=== PATIENT | male | born 1945 | race Caucasian/White ===

== ENCOUNTER 2016-11-20 16:38 | Inpatient (IN) | payer OTHER ==
[~2016-11-20] VITALS: Ht 182.9 cm; Wt 100.0 kg
[~2016-11-20 16:38] MED LIST: ADVAIR HFA120 INHALA IH; ALEVE220 M2 PO; ALEVE220 MG PO; ASPIR 8181 M1 PO; Aspirin E.C. PO; BUPROPION HCL150 M2 PO; CELEXA40 MG PO; CIALIS20 MG PO; CITALOPRAM HBR40 MG PO; CLEOCIN150 MG PO; COUMADIN,JANTO7.5 MG PO; COUMADIN1 MG PO; COUMADIN10 MG PO; COUMADIN7.5 MG PO; CYANOCOBALAM1000 MCG PO; DESYREL100 MG PO; DILAUDID4 MG; DILAUDID4 MG PO; DOCUSATE SODIU100 MG PO; FEROSUL325 MG PO; FERROUS SULFAT325 MG PO; FISH OIL 1,0001 EAC6 PO; FISH OIL 1,0001 EAC7 PO; FLOMAX0.4 MG PO; HYDROCODON-ACE1 EAC7 PO; HYDROMORPHONE HC4 MG PO; IRON325 M1 PO; LEVOFLOXACIN750 MG PO; LISINOPRIL10 MG PO; LO-DOSE ASPIRIN81 M2 PO; MEN'S MULTI-VI1 EACH PO; MOBIC7.5 MG PO; PANTOPRAZOLE SO40 MG PO; PERCOCET 5/31 TABLET PO; PHENTERMINE 37.5 MG; PHENTERMINE H37.5 MG PO; PHENTERMINE HCL; PREDNISONE10 MG PO; PROSCAR5 MG PO; PROTONIX40 MG PO; REQUIP1 MG PO; SPIRIVA RESPIMAT4 GM IH; TAMSULOSIN HCL0.4 MG PO; TRAMADOL HCL50 MG PO; TRAZODONE HCL50 MG PO; ULTRAM50 MG PO; VENTOLIN HFA18 GM IH; VITAMIN D31000 UNI2 PO; ZESTRIL10 MG PO; ZOLOFT50 MG PO
[2016-11-20 17:19] LABS: HEMATOCRIT 41.9 % (38.0-50.0); MCH 27.5 PG (29.0-34.0); MCHC 32.5 G/DL (30.0-36.0); MCV 84.8 FL (86-99); MEAN PLAT.VOLUME 9.8 uM^3 (9.0-12.4); PLATELET COUNT 374 K/uL (156-360); RBC DIS.WIDTH-CV 17.2 % (11.8-14.6); RBC DIS.WIDTH-SD 52.6 % (39-53); RED BLOOD COUNT 4.94 M/uL (4.00-5.50); WHITE BLOOD COUNT 10.4 K/uL (4.1-10.2)
[2016-11-20 17:28] LABS: CHLORIDE 112 mEq/L (99-109); POTASSIUM 5.1 mEq/L (3.7-5.4); SODIUM 141 mEq/L (136-147)
[2016-11-20 17:30] LABS: BASOPHIL COUNT 0.1 K/uL (0-0.1); EOSINOPHIL (%) 3.3 % (0-5); EOSINOPHIL COUNT 0.3 K/uL (0-0.3); GLUCOSE 64 mg/dL (70-99); LYMPHOCYTE COUNT 1.8 K/uL (1.0-2.8); MONOCYTE (%) 5.1 % (3-12); MONOCYTE COUNT 0.5 K/uL (0-0.8); NEUTROPHIL (%) 73.2 % (45-76); NEUTROPHIL COUNT 7.6 K/uL (1.8-6.4)
[2016-11-20 17:32] LABS: ANION GAP 11 MEQ/L (2-14); TOTAL BILIRUBIN 0.3 mg/dL (0.0-1.0)
[2016-11-20 17:34] LABS: ALKALINE PHOSPHATASE 100 IU/L (3-129); GFR ESTIMATE (CALCULATED) 42 mL/min/
[2016-11-20 17:35] LABS: UREA NITROGEN (BUN) 44 mg/dL (9-23)
[2016-11-20 17:40] LABS: TROP-I INTERPRETATION NEGATIVE; TROPONIN-I < 0.01 ng/mL (0.0-0.30)
[2016-11-20 20:10] LABS: ADD MIUA? YES; BILIRUBIN NEGATIVE; BLOOD NEGATIVE; COLOR YELLOW ((YELLOW)); GLUCOSE (STRIP) NEGATIVE; KETONES NEGATIVE; LEUKOCYTES NEGATIVE; NITRITE NEGATIVE; PH, URINE 5.5 (5-8); PROTEIN (STRIP) NEGATIVE; SPECIFIC GRAVITY 1.012 (1.000-1.030); UROBILINOGEN 0.2 MG/DL (0.2-1.0)
[2016-11-20 20:40] LABS: BACTERIA NONE SEEN /HPF; CASTS NONE SEEN /LPF; CRYSTALS NONE SEEN; EPITHELIAL CELLS RARE /HPF; MUCUS RARE /LPF; RED BLOOD CELLS 0-5 /HPF (0-5); UCUL ADDED? NO; WHITE BLOOD CELLS 0-5 /HPF (0-5)
[2016-11-20] MEDS ORDERED: DESYREL100 MG PO (21:01)
[2016-11-20] MEDS ORDERED: FLOMAX0.4 MG PO (21:02)
[2016-11-20] MEDS ORDERED: ADIPEX-P37.5 MG PO (21:02)
[2016-11-20] MEDS ORDERED: ZANTAC150 MG PO (21:02)
[2016-11-20] MEDS ORDERED: CELEXA40 MG PO (21:02)
[2016-11-20] MEDS ORDERED: CYMBALTA30 MG PO (21:02)
[2016-11-20 22:15] LABS: POINT-OF-CARE METER ID UU14100415
[2016-11-21 01:15] VITALS: BP 118/64
[2016-11-21 02:27] LABS: INTERNAL CONTROL VALID? YES
[2016-11-21 02:28] LABS: INTERNAL CONTROL VALID? YES
[2016-11-21 04:06] VITALS: BP 126/57
[2016-11-21 06:17] LABS: HEMATOCRIT 35.2 % (38.0-50.0); MCH 26.6 PG (29.0-34.0); MCV 85.9 FL (86-99); MEAN PLAT.VOLUME 9.7 uM^3 (9.0-12.4); RBC DIS.WIDTH-CV 17.3 % (11.8-14.6); RBC DIS.WIDTH-SD 54.2 % (39-53); WHITE BLOOD COUNT 8.1 K/uL (4.1-10.2)
[2016-11-21 06:33] LABS: PLATELET COUNT 240 K/uL (156-360)
[2016-11-21 06:39] LABS: EOSINOPHIL (%) 4.7 % (0-5); EOSINOPHIL COUNT 0.4 K/uL (0-0.3); IMMATURE GRANULOCYTE (%) 0.2 % (0.0-0.7); LYMPHOCYTE COUNT 1.4 K/uL (1.0-2.8); MONOCYTE (%) 4.9 % (3-12); MONOCYTE COUNT 0.4 K/uL (0-0.8); NEUTROPHIL (%) 72.5 % (45-76); NEUTROPHIL COUNT 5.9 K/uL (1.8-6.4)
[2016-11-21 06:46] LABS: ALKALINE PHOSPHATASE 66 IU/L (3-129); ANION GAP 5 MEQ/L (2-14); CHLORIDE 115 MEQ/L (99-109); POTASSIUM 5.7 MEQ/L (3.7-5.4); SAMPLE HEMOLYSIS CHECK 0; SAMPLE ICTERIC CHECK 0; SAMPLE LIPEMIA CHECK 0; SODIUM 142 MEQ/L (136-147); TOTAL BILIRUBIN 0.3 MG/DL (0.0-1.0); UREA NITROGEN (BUN) 33 mg/dL (9-23)
[2016-11-21 06:50] LABS: GFR ESTIMATE (CALCULATED) > 59 mL/min/; GLUCOSE 99 mg/dL (70-99)
[2016-11-21 07:06] VITALS: BP 125/74
[2016-11-21 11:22] VITALS: BP 117/51
[2016-11-21 13:55] LABS: ANION GAP 5 MEQ/L (2-14); CHLORIDE 112 MEQ/L (99-109); GFR ESTIMATE (CALCULATED) > 59 mL/min/; GLUCOSE 90 mg/dL (70-99); POTASSIUM 4.9 MEQ/L (3.7-5.4); SAMPLE HEMOLYSIS CHECK 0; SAMPLE ICTERIC CHECK 0; SAMPLE LIPEMIA CHECK 0; SODIUM 139 MEQ/L (136-147); UREA NITROGEN (BUN) 27 mg/dL (9-23)
[2016-11-21 15:23] VITALS: BP 126/62
[2016-11-21 19:24] VITALS: BP 109/66
[2016-11-22 00:14] VITALS: BP 110/64
[2016-11-22 03:55] VITALS: BP 120/71
[2016-11-22 08:34] VITALS: BP 140/60
[2016-11-22 11:32] VITALS: BP 89/53
[2016-11-22 16:20] VITALS: BP 125/85
[2016-11-22 20:00] VITALS: BP 113/76
[2016-11-23 00:02] VITALS: BP 101/71
[2016-11-23 03:42] VITALS: BP 115/74
[2016-11-23 07:38] VITALS: BP 116/62
[2016-11-23 09:11] LABS: HEMATOCRIT 39.4 % (38.0-50.0); MCH 27.6 PG (29.0-34.0); MCV 86.2 FL (86-99); MEAN PLAT.VOLUME 10.4 uM^3 (9.0-12.4); PLATELET COUNT 239 K/uL (156-360); RBC DIS.WIDTH-CV 17.3 % (11.8-14.6); RBC DIS.WIDTH-SD 53.9 % (39-53); RED BLOOD COUNT 4.57 M/uL (4.00-5.50); WHITE BLOOD COUNT 6.5 K/uL (4.1-10.2)
[2016-11-23 09:45] LABS: ANION GAP 6 MEQ/L (2-14); CHLORIDE 107 MEQ/L (99-109); GFR ESTIMATE (CALCULATED) > 59 mL/min/; GLUCOSE 89 mg/dL (70-99); SAMPLE HEMOLYSIS CHECK 0; SAMPLE ICTERIC CHECK 0; SAMPLE LIPEMIA CHECK 0; SODIUM 142 MEQ/L (136-147); UREA NITROGEN (BUN) 16 mg/dL (9-23)
[2016-11-23 11:45] VITALS: BP 112/60
[2016-11-23 16:20] VITALS: BP 116/63
[2016-11-23 20:00] VITALS: BP 109/74
[2016-11-24] VITALS (8 sets, daily range): BP systolic 92–113; BP diastolic 55–73
[2016-11-25 04:10] VITALS: BP 102/57
[2016-11-25 07:33] VITALS: BP 80/50
[2016-11-25 08:00] VITALS: BP 96/52
[2016-11-25 11:36] VITALS: BP 96/54
== END 2016-11-25 13:45 | disposition home health service (06) | DRG 857 ==
LOC: EME 16:38 → EDOF 22:11 → 5SOUTH 22:11
PROVIDERS: Emergency Medicine; Internal Medicine; Nurse Practitioner Adult Health
PROC: 0HB7XZZ Excision of Abdomen Skin, External Approach (ICD-10-PCS; principal; 2016-11-21)
DX: T81.4XXA Infection following a procedure, initial encounter (principal); T81.89XA Other complications of procedures, not elsewhere classified, initial encounter; L02.211 Cutaneous abscess of abdominal wall; N17.9 Acute kidney failure, unspecified; Z98.84 Bariatric surgery status; Z91.19 Patient's noncompliance with other medical treatment and regimen; E87.5 Hyperkalemia; E86.0 Dehydration; R19.7 Diarrhea, unspecified; J98.11 Atelectasis; G89.4 Chronic pain syndrome; I12.9 Hypertensive chronic kidney disease with stage 1 through stage 4 chronic kidney disease, or unspecified chronic kidney disease; N18.3 Chronic kidney disease, stage 3 (moderate); K43.9 Ventral hernia without obstruction or gangrene; N40.0 Benign prostatic hyperplasia without lower urinary tract symptoms; G35 Multiple sclerosis; J44.9 Chronic obstructive pulmonary disease, unspecified; E27.8 Other specified disorders of adrenal gland; K21.9 Gastro-esophageal reflux disease without esophagitis; Z87.891 Personal history of nicotine dependence; Z86.711 Personal history of pulmonary embolism; Z86.718 Personal history of other venous thrombosis and embolism; E66.9 Obesity, unspecified; Z68.29 Body mass index [BMI] 29.0-29.9, adult
CPT/HCPCS: 36415; 71010; 71250; 74177; 80048; 80048 91; 80053; 81003; 82272; 82728; 82746; 82948; 83540; 83605; 83630; 84484; 85025; 85027; 85045; 85651; 87040; 87070; 87075; 87076; 87077; 87147; 87177; 87186; 87205; 87493; 93005; 94640; 94640 76; 99202; 99281; 99285; J1644; J7030

== ENCOUNTER 2017-04-06 01:14 | Emergency (ER) | payer OTHER ==
[~2017-04-06] VITALS: Ht 182.9 cm; Wt 97.7 kg
[~2017-04-06 01:14] MED LIST changes: +ADIPEX-P37.5 MG PO; +CYMBALTA30 MG PO; +ZANTAC150 MG PO
[2017-04-06 02:14] LABS: HEMATOCRIT 39.7 % (38.0-50.0); MCH 26.4 PG (29.0-34.0); MCHC 31.2 G/DL (30.0-36.0); MCV 84.5 FL (86-99); MEAN PLAT.VOLUME 9.9 uM^3 (9.0-12.4); PLATELET COUNT 314 K/uL (156-360); RBC DIS.WIDTH-SD 46.4 % (39-53); WHITE BLOOD COUNT 14.1 K/uL (4.1-10.2)
[2017-04-06 02:25] LABS: CHLORIDE 103 mEq/L (99-109); POTASSIUM 4.3 mEq/L (3.7-5.4); SODIUM 139 mEq/L (136-147)
[2017-04-06 02:28] LABS: GLUCOSE 134 mg/dL (70-99)
[2017-04-06 02:29] LABS: ANION GAP 10 MEQ/L (2-14)
[2017-04-06 02:30] LABS: TOTAL BILIRUBIN 0.4 mg/dL (0.0-1.0)
[2017-04-06 02:31] LABS: ALKALINE PHOSPHATASE 97 IU/L (3-129); GFR ESTIMATE (CALCULATED) > 59 mL/min/
[2017-04-06 02:32] LABS: UREA NITROGEN (BUN) 32 mg/dL (9-23)
[2017-04-06 05:46] VITALS: BP 103/73
== END 2017-04-06 06:36 | disposition short-term general hospital (02) ==
LOC: EME 01:14
DX: K43.9 Ventral hernia without obstruction or gangrene (principal); R11.0 Nausea; R42 Dizziness and giddiness; R06.02 Shortness of breath; M54.9 Dorsalgia, unspecified; R00.0 Tachycardia, unspecified; K80.20 Calculus of gallbladder without cholecystitis without obstruction; I12.9 Hypertensive chronic kidney disease with stage 1 through stage 4 chronic kidney disease, or unspecified chronic kidney disease; N18.3 Chronic kidney disease, stage 3 (moderate); Z87.442 Personal history of urinary calculi; Z87.891 Personal history of nicotine dependence
CPT/HCPCS: 74176; 80053; 81003; 85027; 93005; 99281; 99285; J2270; J2405; J3010

== ENCOUNTER 2018-03-09 11:33 | Inpatient (IN) | payer OTHER ==
[2018-03-09] VITALS (12 sets, daily range): BP systolic 89–108; BP diastolic 50–70
[~2018-03-09] VITALS: Ht 182.9 cm; Wt 97.8 kg
[~2018-03-09 11:33] MED LIST changes: -CYMBALTA30 MG PO; +CYMBALTA60 MG PO
[2018-03-09 12:27] LABS: HEMATOCRIT 28.3 % (38.0-50.0); HEMOGLOBIN 8.3 G/DL (12.5-16.6); MCH 20.8 PG (29.0-34.0); MCHC 29.3 G/DL (30.0-36.0); MCV 70.8 FL (86-99); PLATELET COUNT 338 K/uL (156-360); RBC DIS.WIDTH-CV 19.2 % (11.8-14.6); RBC DIS.WIDTH-SD 47.8 % (39-53); WHITE BLOOD COUNT 8.9 K/uL (4.1-10.2)
[2018-03-09 12:32] LABS: ALBUMIN 3.5 g/dL (3.2-4.8); CHLORIDE 108 mEq/L (99-109); POTASSIUM 4.4 mEq/L (3.7-5.4); SODIUM 142 mEq/L (136-147)
[2018-03-09 12:34] LABS: GLUCOSE 94 mg/dL (70-99)
[2018-03-09 12:35] LABS: TOTAL PROTEIN 6.2 g/dL (6.4-8.3)
[2018-03-09 12:36] LABS: TOTAL BILIRUBIN 0.3 mg/dL (0.0-1.0)
[2018-03-09 12:38] LABS: ALKALINE PHOSPHATASE 113 IU/L (3-129); CREATININE 1.2 mg/dL (0.6-1.3); GFR ESTIMATE (CALCULATED) > 59 mL/min/ (58.99-99999)
[2018-03-09 12:39] LABS: UREA NITROGEN (BUN) 32 mg/dL (9-23)
[2018-03-09 12:40] LABS: AST (GOT) 9 IU/L (2-34)
[2018-03-09 12:41] LABS: ALT (GPT) 9 IU/L (3-49)
[2018-03-09 12:45] LABS: TROP-I INTERPRETATION NEGATIVE; TROPONIN-I < 0.01 ng/mL (0.0-0.30)
[2018-03-09 14:53] LABS: APPEARANCE CLEAR ((CLEAR)); BILIRUBIN NEGATIVE; BLOOD NEGATIVE; COLOR YELLOW ((YELLOW)); GLUCOSE (STRIP) NEGATIVE; KETONES NEGATIVE; LEUKOCYTES NEGATIVE; NITRITE NEGATIVE; PROTEIN (STRIP) NEGATIVE; SPECIFIC GRAVITY 1.014 (1.000-1.030); UCUL ADDED? NO
[2018-03-09] MEDS ORDERED: ADVIL,NUPRIN,M200 MG PO (15:09)
[2018-03-09] MEDS ORDERED: GABAPENTIN300 MG PO (15:12)
[2018-03-09 19:45] LABS: HEMOGLOBIN 7.6 G/DL (12.5-16.6); MCV 72.8 FL (86-99)
[2018-03-10] VITALS (7 sets, daily range): BP systolic 100–119; BP diastolic 55–76
[2018-03-10 00:44] LABS: HEMATOCRIT 27.1 % (38.0-50.0); HEMOGLOBIN 8.2 G/DL (12.5-16.6); MCV 71.7 FL (86-99)
[2018-03-10 05:57] LABS: BASOPHIL (%) 0.8 % (0-1); BASOPHIL COUNT 0.1 K/uL (0-0.1); EOSINOPHIL (%) 5.9 % (0-5); EOSINOPHIL COUNT 0.4 K/uL (0-0.3); HEMATOCRIT 28.6 % (38.0-50.0); HEMOGLOBIN 8.5 G/DL (12.5-16.6); IMMATURE GRANULOCYTE (%) 0.3 % (0.0-0.7); LYMPHOCYTE (%) 21.6 % (15-42); LYMPHOCYTE COUNT 1.3 K/uL (1.0-2.8); MCH 21.5 PG (29.0-34.0); MCHC 29.7 G/DL (30.0-36.0); MCV 72.2 FL (86-99); MONOCYTE (%) 8.2 % (3-12); MONOCYTE COUNT 0.5 K/uL (0-0.8); NEUTROPHIL (%) 63.2 % (45-76); NEUTROPHIL COUNT 3.9 K/uL (1.8-6.4); PLATELET COUNT 286 K/uL (156-360); RBC DIS.WIDTH-CV 19.5 % (11.8-14.6); RBC DIS.WIDTH-SD 50.3 % (39-53); RED BLOOD COUNT 3.96 M/uL (4.00-5.50); WHITE BLOOD COUNT 6.1 K/uL (4.1-10.2)
[2018-03-10 05:59] LABS: CHLORIDE 115 MEQ/L (99-109); CREATININE 1.1 MG/DL (0.6-1.3); GFR ESTIMATE (CALCULATED) > 59 mL/min/ (58.99-99999); GLUCOSE 84 mg/dL (70-99); POTASSIUM 4.1 MEQ/L (3.7-5.4); SODIUM 145 MEQ/L (136-147); UREA NITROGEN (BUN) 26 mg/dL (9-23)
[2018-03-10 11:39] LABS: HEMOGLOBIN 8.5 G/DL (12.5-16.6); MCV 72.9 FL (86-99)
[2018-03-10 17:55] LABS: HEMOGLOBIN 9.2 G/DL (12.5-16.6); MCV 72.6 FL (86-99)
[2018-03-11 03:00] VITALS: BP 123/68
[2018-03-11 05:21] LABS: BASOPHIL (%) 0.7 % (0-1); BASOPHIL COUNT 0.1 K/uL (0-0.1); EOSINOPHIL (%) 4.3 % (0-5); EOSINOPHIL COUNT 0.3 K/uL (0-0.3); HEMATOCRIT 29.5 % (38.0-50.0); HEMOGLOBIN 8.7 G/DL (12.5-16.6); IMMATURE GRANULOCYTE (%) 0.3 % (0.0-0.7); LYMPHOCYTE (%) 20.8 % (15-42); LYMPHOCYTE COUNT 1.6 K/uL (1.0-2.8); MCH 21.3 PG (29.0-34.0); MCHC 29.5 G/DL (30.0-36.0); MCV 72.3 FL (86-99); MONOCYTE (%) 6.5 % (3-12); MONOCYTE COUNT 0.5 K/uL (0-0.8); NEUTROPHIL (%) 67.4 % (45-76); NEUTROPHIL COUNT 5.1 K/uL (1.8-6.4); PLATELET COUNT 285 K/uL (156-360); RBC DIS.WIDTH-CV 20.1 % (11.8-14.6); RED BLOOD COUNT 4.08 M/uL (4.00-5.50); WHITE BLOOD COUNT 7.5 K/uL (4.1-10.2)
[2018-03-11 05:37] LABS: ALBUMIN 3.1 G/DL (3.2-4.8); ALKALINE PHOSPHATASE 91 IU/L (3-129); ALT (GPT) 5 IU/L (3-49); AST (GOT) 7 IU/L (2-34); CHLORIDE 112 MEQ/L (99-109); CREATININE 0.8 MG/DL (0.6-1.3); GFR ESTIMATE (CALCULATED) > 59 mL/min/ (58.99-99999); GLUCOSE 79 mg/dL (70-99); POTASSIUM 3.9 MEQ/L (3.7-5.4); SODIUM 143 MEQ/L (136-147); TOTAL BILIRUBIN 0.6 MG/DL (0.0-1.0); TOTAL PROTEIN 5.3 G/DL (6.4-8.3); UREA NITROGEN (BUN) 16 mg/dL (9-23)
[2018-03-11 08:30] VITALS: BP 99/53
[2018-03-11 11:53] VITALS: BP 109/65
== END 2018-03-11 16:01 | disposition home or self-care (01) | DRG 812 ==
LOC: EME 11:33 → 4EAST 14:48 → EDOF 14:48 → ENRESERV 14:49 → 4EAST 16:23
PROVIDERS: Emergency Medicine Emergency Medical Services; Hospitalist
PROC: 30233N1 Transfusion of Nonautologous Red Blood Cells into Peripheral Vein, Percutaneous Approach (ICD-10-PCS; principal; 2018-03-09)
DX: D62 Acute posthemorrhagic anemia (principal); K92.2 Gastrointestinal hemorrhage, unspecified; K95.81 Infection due to other bariatric procedure; Y83.8 Other surgical procedures as the cause of abnormal reaction of the patient, or of later complication, without mention of misadventure at the time of the procedure; I12.9 Hypertensive chronic kidney disease with stage 1 through stage 4 chronic kidney disease, or unspecified chronic kidney disease; N18.3 Chronic kidney disease, stage 3 (moderate); G35 Multiple sclerosis; J44.9 Chronic obstructive pulmonary disease, unspecified; G20 Parkinson's disease; K21.9 Gastro-esophageal reflux disease without esophagitis; N40.0 Benign prostatic hyperplasia without lower urinary tract symptoms; H54.8 Legal blindness, as defined in USA; F32.9 Major depressive disorder, single episode, unspecified; Z86.718 Personal history of other venous thrombosis and embolism; Z86.711 Personal history of pulmonary embolism; Z95.828 Presence of other vascular implants and grafts; Z79.82 Long term (current) use of aspirin
CPT/HCPCS: 70450; 71045; 80048; 80053; 81003; 84484; 85014; 85018; 85025; 85027; 86850; 86900; 86901; 86920; 87040; 87070; 87075; 87077; 87147; 87186; 87205; 93005; 99281; 99285; A6260; C9113; J7030; J7040; P9016

== ENCOUNTER 2018-05-10 02:26 | Inpatient (IN) | payer OTHER ==
[~2018-05-10] VITALS: Ht 182.9 cm; Wt 99.5 kg
[~2018-05-10 02:26] MED LIST changes: +ADVIL,NUPRIN,M200 MG PO; +GABAPENTIN300 MG PO
[2018-05-10 02:47] LABS: HEMATOCRIT 28.3 % (38.0-50.0); HEMOGLOBIN 8.5 G/DL (12.5-16.6); MCH 21.2 PG (29.0-34.0); MCV 70.6 FL (86-99); PLATELET COUNT 306 K/uL (156-360); RBC DIS.WIDTH-CV 21.9 % (11.8-14.6); RBC DIS.WIDTH-SD 54.6 % (39-53); RED BLOOD COUNT 4.01 M/uL (4.00-5.50); WHITE BLOOD COUNT 13.1 K/uL (4.1-10.2)
[2018-05-10 02:54] LABS: CHLORIDE 109 mEq/L (99-109); POTASSIUM 4.2 mEq/L (3.7-5.4); SODIUM 140 mEq/L (136-147)
[2018-05-10 02:55] LABS: GLUCOSE 113 mg/dL (70-99)
[2018-05-10 02:59] LABS: CREATININE 1.2 mg/dL (0.6-1.3); GFR ESTIMATE (CALCULATED) > 59 mL/min/ (58.99-99999)
[2018-05-10 03:00] LABS: UREA NITROGEN (BUN) 34 mg/dL (9-23)
[2018-05-10 03:34] LABS: INTER. NORMALIZED RATIO 1.2
[2018-05-10 03:37] LABS: PTT 27.7 SEC (25-37)
[2018-05-10] MEDS ORDERED: TYLENOL REGULA325 MG PO (05:53)
[2018-05-10 08:22] VITALS: BP 115/71
[2018-05-10 10:30] LABS: HEMATOCRIT 27.3 % (38.0-50.0); HEMOGLOBIN 7.8 G/DL (12.5-16.6); MCV 71.1 FL (86-99)
[2018-05-10 11:18] LABS: APPEARANCE CLEAR ((CLEAR)); BILIRUBIN NEGATIVE; BLOOD NEGATIVE; COLOR YELLOW ((YELLOW)); GLUCOSE (STRIP) NEGATIVE; KETONES NEGATIVE; LEUKOCYTES NEGATIVE; NITRITE NEGATIVE; PROTEIN (STRIP) NEGATIVE; SPECIFIC GRAVITY 1.012 (1.000-1.030); UCUL ADDED? NO; UROBILINOGEN 0.2 MG/DL (0.2-1.0)
[2018-05-10 19:31] VITALS: BP 136/81
[2018-05-10 23:55] VITALS: BP 123/67
[2018-05-11 04:23] VITALS: BP 132/71
[2018-05-11 06:46] LABS: HEMATOCRIT 26.4 % (38.0-50.0); HEMOGLOBIN 7.6 G/DL (12.5-16.6); MCH 20.5 PG (29.0-34.0); MCHC 28.8 G/DL (30.0-36.0); MCV 71.2 FL (86-99); PLATELET COUNT 247 K/uL (156-360); RBC DIS.WIDTH-CV 22.1 % (11.8-14.6); RBC DIS.WIDTH-SD 55.9 % (39-53); RED BLOOD COUNT 3.71 M/uL (4.00-5.50); WHITE BLOOD COUNT 10.6 K/uL (4.1-10.2)
[2018-05-11 07:15] LABS: ALKALINE PHOSPHATASE 83 IU/L (3-129); ALT (GPT) 11 IU/L (3-49); AST (GOT) 12 IU/L (2-34); CHLORIDE 109 MEQ/L (99-109); CREATININE 0.9 MG/DL (0.6-1.3); GFR ESTIMATE (CALCULATED) > 59 mL/min/ (58.99-99999); GLUCOSE 117 mg/dL (70-99); POTASSIUM 4.2 MEQ/L (3.7-5.4); SODIUM 145 MEQ/L (136-147); TOTAL BILIRUBIN 0.4 MG/DL (0.0-1.0); TOTAL PROTEIN 4.9 G/DL (6.4-8.3); UREA NITROGEN (BUN) 22 mg/dL (9-23)
[2018-05-11 08:13] VITALS: BP 139/72
[2018-05-11 14:31] VITALS: BP 130/72
[2018-05-11 19:37] VITALS: BP 106/57
[2018-05-11 23:21] VITALS: BP 124/62
[2018-05-12 04:13] VITALS: BP 124/63
[2018-05-12 07:10] LABS: BASOPHIL (%) 0.2 % (0-1); EOSINOPHIL (%) 6.8 % (0-5); EOSINOPHIL COUNT 0.6 K/uL (0-0.3); HEMATOCRIT 27.6 % (38.0-50.0); HEMOGLOBIN 7.9 G/DL (12.5-16.6); IMMATURE GRANULOCYTE (%) 0.5 % (0.0-0.7); LYMPHOCYTE COUNT 1.3 K/uL (1.0-2.8); MCH 20.2 PG (29.0-34.0); MCHC 28.6 G/DL (30.0-36.0); MCV 70.4 FL (86-99); MONOCYTE (%) 10.4 % (3-12); MONOCYTE COUNT 0.8 K/uL (0-0.8); NEUTROPHIL (%) 66.1 % (45-76); NEUTROPHIL COUNT 5.3 K/uL (1.8-6.4); PLATELET COUNT 266 K/uL (156-360); RBC DIS.WIDTH-CV 22.1 % (11.8-14.6); RBC DIS.WIDTH-SD 54.6 % (39-53); RED BLOOD COUNT 3.92 M/uL (4.00-5.50)
[2018-05-12 08:15] VITALS: BP 136/61
[2018-05-12 15:31] VITALS: BP 120/70
[2018-05-12 23:14] VITALS: BP 119/64
[2018-05-13 07:11] LABS: HEMATOCRIT 29.2 % (38.0-50.0); HEMOGLOBIN 8.5 G/DL (12.5-16.6); MCH 20.2 PG (29.0-34.0); MCHC 29.1 G/DL (30.0-36.0); MCV 69.5 FL (86-99); PLATELET COUNT 293 K/uL (156-360); RBC DIS.WIDTH-CV 21.7 % (11.8-14.6); RBC DIS.WIDTH-SD 53.1 % (39-53); WHITE BLOOD COUNT 8.2 K/uL (4.1-10.2)
[2018-05-13 07:48] VITALS: BP 123/77
[2018-05-13 15:40] VITALS: BP 115/64
[2018-05-13 23:56] VITALS: BP 119/67
[2018-05-14 04:28] VITALS: BP 140/62
[2018-05-14 06:16] LABS: HEMATOCRIT 28.8 % (38.0-50.0); HEMOGLOBIN 8.2 G/DL (12.5-16.6); MCHC 28.5 G/DL (30.0-36.0); MCV 70.4 FL (86-99); PLATELET COUNT 296 K/uL (156-360); RBC DIS.WIDTH-CV 21.6 % (11.8-14.6); RBC DIS.WIDTH-SD 53.3 % (39-53); RED BLOOD COUNT 4.09 M/uL (4.00-5.50); WHITE BLOOD COUNT 9.2 K/uL (4.1-10.2)
[2018-05-14 07:37] LABS: CHLORIDE 101 MEQ/L (99-109); CREATININE 0.9 MG/DL (0.6-1.3); GFR ESTIMATE (CALCULATED) > 59 mL/min/ (58.99-99999); GLUCOSE 102 mg/dL (70-99); POTASSIUM 3.8 MEQ/L (3.7-5.4); SODIUM 141 MEQ/L (136-147); UREA NITROGEN (BUN) 27 mg/dL (9-23)
[2018-05-14 07:57] VITALS: BP 107/59
[2018-05-14] MEDS ORDERED: TYLENOL REGULA325 MG PO (12:56)
[2018-05-14] MEDS ORDERED: DOCUSATE SODIU100 MG PO (12:58)
[2018-05-14] MEDS ORDERED: POLYETHYLENE GL17 GM PO (12:58)
[2018-05-14] MEDS ORDERED: OXYCODONE HCL5 MG PO (12:58)
[2018-05-14] MEDS ORDERED: BISAC-EVAC10 MG PR (12:58)
[2018-05-14] MEDS ORDERED: LOVENOX40 MG/0.4 SC (13:16)
[2018-05-14] MEDS ORDERED: ASPIRIN EC325 MG PO (13:23)
== END 2018-05-14 15:44 | DRG 482 ==
LOC: EME 02:26 → EDOF 05:13 → 3EAST 05:13 → ENRESERV 05:14 → 3EAST 07:09 → EDOF 07:09 → 3EAST 07:16
PROVIDERS: Emergency Medicine; Hospitalist; Internal Medicine
PROC: 0QS634Z Reposition Right Upper Femur with Internal Fixation Device, Percutaneous Approach (ICD-10-PCS; principal; 2018-05-10)
DX: S72.011A Unspecified intracapsular fracture of right femur, initial encounter for closed fracture (principal); I12.9 Hypertensive chronic kidney disease with stage 1 through stage 4 chronic kidney disease, or unspecified chronic kidney disease; N18.3 Chronic kidney disease, stage 3 (moderate); Z86.718 Personal history of other venous thrombosis and embolism; Z86.711 Personal history of pulmonary embolism; W10.1XXA Fall (on)(from) sidewalk curb, initial encounter; G35 Multiple sclerosis; Z98.84 Bariatric surgery status; F32.9 Major depressive disorder, single episode, unspecified; Z87.891 Personal history of nicotine dependence; H54.8 Legal blindness, as defined in USA; T81.89XA Other complications of procedures, not elsewhere classified, initial encounter; Z87.442 Personal history of urinary calculi; J44.9 Chronic obstructive pulmonary disease, unspecified; D50.9 Iron deficiency anemia, unspecified; Z22.321 Carrier or suspected carrier of Methicillin susceptible Staphylococcus aureus
CPT/HCPCS: 71045; 73501; 73502; 73552; 76000; 80048; 80053; 81003; 85014; 85018; 85025; 85027; 85610; 85730; 86850; 86900; 86901; 87070; 87075; 87076; 87077; 87147; 87186; 87205; 93005; 94799; 97530 GP; 99281; 99285; A6260; C1713; J0330; J0690; J1100; J1170; J1644; J1885; J2270; J2405; J3010; J7030